=== PATIENT | female | born 2005 | race Caucasian/White ===

== ENCOUNTER 2023-03-02 13:04 | Outpatient (RCR) | payer BC ==
[~2023-03-02 13:04] MED LIST: VANTIN 200200 MG/TAB PO; ZOFRAN ODT4 MG PO
== END 2023-03-14 | disposition home or self-care (01) ==
LOC: MKS.ESL.PT
DX: S06.9XAD Unspecified intracranial injury with loss of consciousness status unknown, subsequent encounter (principal); X58.XXXD Exposure to other specified factors, subsequent encounter

== ENCOUNTER 2023-04-03 20:43 | Emergency (ER) | payer BC ==
[~2023-04-03] VITALS: Ht 157.5 cm; Wt 59.1 kg
[2023-04-03] MEDS ORDERED: Ibuprofen 600 MG TAB PO ONE (21:15)
[2023-04-03] MEDS ORDERED: TAMIFLU 75MG75 MG PO (22:24)
[2023-04-03] MEDS ORDERED: Oseltamivir 75 MG CAP PO ONE (22:30)
[2023-04-03 22:48] VITALS: BP 110/64; PULSE 109; TEMP 98.8
== END 2023-04-03 22:48 | disposition home or self-care (01) ==
LOC: COL.ER 20:43
DX: J10.1 Influenza due to other identified influenza virus with other respiratory manifestations (principal); D89.89 Other specified disorders involving the immune mechanism, not elsewhere classified

== ENCOUNTER → 2023-04-12 | Outpatient (RCR) | payer BC ==
[~2023-04-12] MED LIST changes: +TAMIFLU 75MG75 MG PO
== END | disposition home or self-care (01) ==
LOC: MKS.ESL.PT
DX: S06.9XAD Unspecified intracranial injury with loss of consciousness status unknown, subsequent encounter (principal)

== ENCOUNTER 2023-06-24 17:30 | Emergency (ER) | payer BC ==
[~2023-06-24] VITALS: Ht 157.5 cm; Wt 63.6 kg
[2023-06-24 19:27] VITALS: BP 119/79; PULSE 76; TEMP 97
== END 2023-06-24 19:27 | disposition home or self-care (01) ==
LOC: COL.ER 17:30
DX: S61.412A Laceration without foreign body of left hand, initial encounter (principal); W26.9XXA Contact with unspecified sharp object(s), initial encounter; Y92.009 Unspecified place in unspecified non-institutional (private) residence as the place of occurrence of the external cause